=== PATIENT | female | born 1950 | race Caucasian/White ===

== ENCOUNTER → 2017-08-09 | Outpatient (CLI) | payer MEDICARE, OTHER ==
--- NOTE | 2017-08-09 09:14 | CT ---
EXAMINATION TYPE: CT sinus wo con DATE OF EXAM: 08/09/2017 COMPARISON: NONE HISTORY: sinusitis CT DLP: [id number] mGycm CONTRAST: None The paranasal sinuses are examined in the axial plane at 2 mm thick sections. Reconstructed images i n the coronal plane were obtained. There is dental amalgam scatter artifact The maxillary sinuses are clear. The ethmoid air cells are clear. The sphenoid sinuses are clear. The frontal sinuses are clear. The septum is evaluated. There is septal deviation to the right. The right is noted. The ostiomeatal units are patent. IMPRESSIONS: 1. Normal paranasal sinus study.
== END | disposition home or self-care (01) ==
LOC: RADCTMAIN 08:50
PROVIDERS: ATTEND Otolaryngology
DX: J32.9 Chronic sinusitis, unspecified (principal)
CPT/HCPCS: 36415; 70486; 86003; 86160; 86161

== ENCOUNTER → 2017-08-09 | Outpatient (CLI) | payer MEDICARE, OTHER ==
[2017-08-09 16:34] LABS: Soybean IgE <0.10 kU/L
[2017-08-12 14:01] LABS: Apple IgE Class CLASS 0; Gluten IgE Class CLASS 0; Potato IgE <0.35 kU/L (<0.35); Potato IgE Class CLASS 0
[2017-08-12 14:02] LABS: Avocado Class CLASS 0; Banana IgE Class CLASS 0; Hazelnut IgE <0.35 kU/L (<0.35); Hazelnut IgE Class CLASS 0; Kiwi IgE <0.35 kU/L (<0.35); Latex IgE Class CLASS 0
== END | disposition home or self-care (01) ==
LOC: LABWHC1 09:30
PROVIDERS: ATTEND Otolaryngology
DX: J30.89 Other allergic rhinitis (principal); T78.3XXA Angioneurotic edema, initial encounter
CPT/HCPCS: 36415; 86003; 86160; 86161